=== PATIENT | male | born 1955 | race Caucasian/White ===

== ENCOUNTER 2024-08-10 05:51 | Observation (INO) | payer MEDICARE ==
[2024-08-04 14:15] LABS: BASOPHILS % (AUTO) 0.5 % (0-1); EOSINOPHILS # (AUTO) 0.3 X10'3 (0-0.9); EOSINOPHILS % (AUTO) 3.5 % (0-6); LYMPHOCYTES # (AUTO) 1.9 X10'3 (1.1-4.8); LYMPHOCYTES % (AUTO) 22.5 % (21-51); MEAN CORPUSCULAR HEMOGLOBIN 31.4 PG (27.0-31.0); MEAN CORPUSCULAR HGB CONC 33.9 g/dL (33.0-36.5); MEAN CORPUSCULAR VOLUME 92.8 FL (78-98); MEAN PLATELET VOLUME 9.3 FL (7.4-10.4); MONOCYTES # (AUTO) 0.8 X10'3 (0-0.9); NEUTROPHILS # (AUTO) 5.5 X10'3 (1.8-7.7); NEUTROPHILS % (AUTO) 64.5 % (42-75); PRE OP HEMATOCRIT 43.7 % (42.0-52.0); PRE OP HEMOGLOBIN 14.8 g/dL (14.0-17.9); PRE OP PLATELET COUNT 226 X10'3 (140-440); PRE OP WHITE BLOOD COUNT 8.6 10'3 (4.8-10.8); RED BLOOD COUNT 4.71 X10'6 (4.70-6.10); RED CELL DISTRIBUTION WIDTH 14.2 % (11.5-14.5)
[2024-08-04 14:35] LABS: ALBUMIN 3.8 G/DL (3.4-5.0); ALBUMIN/GLOBULIN RATIO 1.3 (1.1-1.5); ALKALINE PHOSPHATASE 70 IU/L (46-116); BLOOD UREA NITROGEN 17 MG/DL (7-18); BUN/CREATININE RATIO 22.7 (10.0-20.0); CALCIUM 8.8 MG/DL (8.5-10.1); CHLORIDE 105 MMOL/L (99-107); CREATININE 0.75 MG/DL (0.60-1.10); PRE OP ALT 23 U/L (30-65); PRE OP ANION GAP 6 (8-16); PRE OP AST 15 U/L (10-37); PRE OP BILIRUB, TOTAL 0.6 MG/DL (0.0-1.0); PRE OP GLUCOSE 98 MG/DL (70-104); PRE OP POTASSIUM 4.3 MMOL/L (3.4-5.1); PRE OP SODIUM 140 MMOL/L (135-145); TOTAL CARBON DIOXIDE 29.4 MMOL/L (24-32); TOTAL PROTEIN 6.7 G/DL (6.4-8.2); eGFR > 90 ML/MIN
[2024-08-04 14:38] LABS: PRE OP PROTIME 10.8 SECONDS (9.0-12.0)
[~2024-08-10] VITALS: Ht 177.8 cm; Wt 81.4 kg
[2024-08-10] VITALS (20 sets, daily range): BP systolic 117–154; BP diastolic 51–75; PULSE 46–86; RESP 10–22; TEMP 98–98.1; O2SAT 93–98
[~2024-08-10 05:51] MED LIST: ATOR20TA66 PO; CYCL-1 PO; FLO0.4C PO; GINS100C5 PO; HYDR25TA4 PO; IBUP-1986 PO; LISI5TAB22 PO; MULT-1085 PO; TRAZ-251 PO
[2024-08-10] MEDS: famotidine 20mg tablet PO ONE (06:25)
[2024-08-10] MEDS: cefazolin 2gm/D5W 100mL 100 ML IV ONE (06:26)
[2024-08-10] MEDS: ringers solution, lacted 1,000 ML IV SCH ×2 (06:26→17:13)
[2024-08-10] MEDS ORDERED: naloxone 0.4 mg/ml inj IV PRN (07:05)
[2024-08-10] MEDS ORDERED: ondansetron/PF 4mg/2ml inj IV PRN ×2 (07:05→08:00)
[2024-08-10] MEDS ORDERED: HYDROcodone/acetaminophen 5mg/325mg tablet PO PRN (07:05)
[2024-08-10] MEDS ORDERED: bisacodyl 10mg suppository rectal RC PRN (07:05)
[2024-08-10] MEDS ORDERED: magnesium hydroxide 30ml (MOM) UD suspension PO PRN (07:05)
[2024-08-10] MEDS ORDERED: acetaminophen 325mg tablet PO PRN (07:05)
[2024-08-10] MEDS ORDERED: proCHLORperazine 10 MG/2 ml inj IV PRN (08:00)
[2024-08-10] MEDS ORDERED: labetalol 20mg/4ml (5mg/ml) syringe IV PRN (08:00)
[2024-08-10] MEDS ORDERED: enalaprilat dihydrate 2.5mg/2ml vial IV PRN (08:00)
[2024-08-10] MEDS ORDERED: meperidine/PF 25mg/ml syringe IV PRN ×3 (08:00)
[2024-08-10] MEDS ORDERED: morphine 2 MG/ML inj. syringe IV PRN (08:00)
[2024-08-10] MEDS ORDERED: morphine 4 MG/ML inj SYRINge IV PRN (08:00)
[2024-08-10] MEDS ORDERED: fentaNYL/PF 50MCG/1 ML 2ML syringe ONE (08:43)
[2024-08-10] MEDS ORDERED: MIDAZolam 1 MG/ML 5ML VIAL ONE (08:44)
[2024-08-10] MEDS ORDERED: ROPIVAcaine 0.5% (5mg/ml) 30ml vial ONE (08:45)
[2024-08-10] MEDS ORDERED: sevoflurane 250ml liquid IH ONE (08:47)
[2024-08-10] MEDS ORDERED: propofol inj 20 ML IV ONE (09:01)
[2024-08-10] MEDS ORDERED: LIDOcaine 2% (20mg/ml) 5ml vial ONE (09:01)
[2024-08-10] MEDS: vancomycin 1,000mg inj IVT ONE (10:48)
[2024-08-10] MEDS ORDERED: ondansetron/PF 4mg/2ml inj ONE (11:55)
[2024-08-10] MEDS: ceFAZolin 2gm in dextrose, iso 50 ML IV SCH ×2 (15:00→23:01)
[2024-08-10] MEDS: tranexamic acid inj. 1,000 MG in normal saline IV soln 100ML IV ONE (16:53)
[2024-08-10] MEDS: potassium cl 20mEq in 1/2 NS 1,000 ML IV SCH (17:13)
[2024-08-10] MEDS: methylene blue (5mg/ml) 50mg/10ml ampul IV ONE (17:14)
[2024-08-10] MEDS: gelatin sponge, absorbable (Gelfoam 100) sponge TP ONE (17:14)
[2024-08-10] MEDS: vancomycin 1,000mg inj ONE (17:14)
[2024-08-10] MEDS: cloNIDine hcl/PF 100mcg/ml inj ONE (17:15)
[2024-08-10] MEDS: Thrombin (Bovine) 5,000 unit vial TP ONE (17:15)
[2024-08-10] MEDS ORDERED: ibuprofen tablet 400 MG TABLET PO PRN (21:35)
[2024-08-10] MEDS ORDERED: CYCL-394 PO (21:44)
[2024-08-10] MEDS: tamsulosin 0.4mg capsule PO SCH (21:53)
[2024-08-10] MEDS: traZODone 50mg tablet PO PRN (23:13)
[2024-08-11] MEDS: diphenhydrAMINE 25mg capsule PO PRN (00:58)
[2024-08-11 02:00] VITALS: BP 146/62; PULSE 72; RESP 18; TEMP 98.5; O2SAT 94
[2024-08-11] MEDS: HYDROcodone/acetaminophen 5mg/325mg tablet PO PRN (02:57)
[2024-08-11 06:00] VITALS: BP 131/62; PULSE 71; RESP 16; TEMP 98.5; O2SAT 96
[2024-08-11 06:42] LABS: ALANINE AMINOTRANSFERASE 19 U/L (12-78); ALBUMIN 3.1 G/DL (3.4-5.0); ALBUMIN/GLOBULIN RATIO 1.2 (1.1-1.5); ALKALINE PHOSPHATASE 55 IU/L (46-116); ANION GAP 8 (8-16); ASPARTATE AMINO TRANSFERASE 18 U/L (10-37); BLOOD UREA NITROGEN 13 MG/DL (7-18); BUN/CREATININE RATIO 18.8 (10.0-20.0); CALCIUM 8.4 MG/DL (8.5-10.1); CHLORIDE 106 MMOL/L (99-107); CREATININE 0.69 MG/DL (0.60-1.10); GLUCOSE 128 MG/DL (70-104); POTASSIUM 3.8 MMOL/L (3.5-5.1); SODIUM 140 MMOL/L (135-145); TOTAL CARBON DIOXIDE 25.9 MMOL/L (24-32); TOTAL PROTEIN 5.7 G/DL (6.4-8.2); eCRCL 101 ML/MIN; eGFR > 90 ML/MIN
[2024-08-11 06:46] LABS: BASOPHILS % (AUTO) 0.1 % (0-1); EOSINOPHILS % (AUTO) 0.1 % (0-6); HEMATOCRIT 37.5 % (42.0-52.0); HEMOGLOBIN 12.6 g/dl (14.0-17.9); LYMPHOCYTES # (AUTO) 0.9 X10'3 (1.1-4.8); LYMPHOCYTES % (AUTO) 6.7 % (21-51); MEAN CORPUSCULAR HEMOGLOBIN 32.1 PG (27.0-31.0); MEAN CORPUSCULAR HGB CONC 33.6 g/dL (33.0-36.5); MEAN CORPUSCULAR VOLUME 95.6 FL (78-98); MEAN PLATELET VOLUME 9.1 FL (7.4-10.4); MONOCYTES # (AUTO) 1.4 X10'3 (0-0.9); MONOCYTES % (AUTO) 9.7 % (2-12); NEUTROPHILS # (AUTO) 11.7 X10'3 (1.8-7.7); NEUTROPHILS % (AUTO) 83.4 % (42-75); PLATELET COUNT 197 X10'3 (140-440); RED BLOOD COUNT 3.92 X10'6 (4.70-6.10); RED CELL DISTRIBUTION WIDTH 13.9 % (11.5-14.5)
[2024-08-11 07:31] VITALS: BP_SYST 131; PULSE 71
[2024-08-11] MEDS: lisinopril 5mg tablet PO SCH (07:31)
[2024-08-11] MEDS: HYDROchlorothiazide 25mg tablet PO SCH (07:32)
[2024-08-11] MEDS: atorvastatin 20mg tablet PO SCH (07:32)
[2024-08-11] MEDS: multivitamins, therapeutics tablet PO SCH (07:32)
[2024-08-11] MEDS: cyclobenzaprine 10mg tablet PO PRN (07:33)
[2024-08-11] MEDS: aspirin 325mg tablet PO SCH (07:33)
[2024-08-11 08:51] VITALS: RESP 18
== END 2024-08-11 10:05 | disposition home or self-care (01) ==
LOC: PAS 05:51 → PACU 07:07 → ORTHO 4S 16:00
PROVIDERS: ADMIT Specialist; ATTEND Specialist
DX: M19.012 Primary osteoarthritis, left shoulder (principal); M75.22 Bicipital tendinitis, left shoulder; G89.18 Other acute postprocedural pain; R33.9 Retention of urine, unspecified; Z79.899 Other long term (current) drug therapy; Z86.2 Personal history of diseases of the blood and blood-forming organs and certain disorders involving the immune mechanism
CPT/HCPCS: 23430; 23472; 64450; 73020; 73030; 80053; 82948; 85610; 85730; 96365; 96366; 97161; A4565; A4618; A7000; C1758; C1776; G0378; J0690; J2710; J3480; J3490; J7120; Q0163; 36415; 71045; 76000; 85025; 87081; 97110; 97530; A6449; A6455; G0379; J0735; J1100; J2250; J2405; J2704; J2795; J3010; J3370; Q9968